=== PATIENT | male | born 1965 | race Caucasian/White ===

== ENCOUNTER 2025-05-03 02:35 | Emergency (ER) | payer MEDICARE, OTHER, SELFPAY ==
[2025-05-03 02:35] VITALS: BP 180/90; PULSE 88; RESP 18; O2SAT 98; BMI 28.7; BMI 31.4
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
[2025-05-03 02:44] LABS: Hematocrit 35.5 % (42.0-52.0); Hemoglobin 11.9 g/dL (14.1-18.0); Immature Granulocytes % 0.4 %; Mean Corpuscular HGB Conc 33.5 g/dL (31.8-35.4); Mean Corpuscular Hemoglobin 28.7 pg (27.0-31.2); Mean Corpuscular Volume 85.7 fl (80-94); Nucleated Red Blood Cells % 0 %; Platelet Count 382 K/mm3 (142-424); Red Blood Count 4.14 M/mm3 (4.60-6.20); Red Cell Distribution Width-SD 41.1 fL; White Blood Count 9.9 K/mm3 (4.8-10.8)
[2025-05-03 02:51] VITALS: BP 195/118; PULSE 82; RESP 20; O2SAT 98
[2025-05-03 02:54] LABS: Albumin Level 4.3 g/dl (3.5-5.0); Chloride 104 mmol/L (98-107); Potassium 4.0 mmoL/L (3.5-5.1); Sodium 136 mmol/L (136-145)
[2025-05-03 02:55] VITALS: BP 189/114; PULSE 81; RESP 18; TEMP 36.6; O2SAT 98
[2025-05-03 02:57] VITALS: BP 189/114; PULSE 82; RESP 18; O2SAT 98
[2025-05-03 02:57] LABS: Alanine Aminotransferase 14 U/L (12-78); Albumin/Globulin Ratio 1.2 (1.1-1.8); Alkaline Phosphatase 112 U/L (38-126); Anion Gap 12.0 mEq/L (5-15); Aspartate Amino Transferase 23 U/L (17-59); Bilirubin,Total 0.3 mg/dl (0.2-1.3); Blood Urea Nitrogen 23 mg/dl (9-20); Carbon Dioxide 24 mmol/L (22.0-30.0); Creatinine Clearance Estimated 106 mL/min (50-200); Creatinine,Serum 1.00 mg/dl (0.66-1.25); Estimated Glomerular Filt Rate 77 ml/min (>60); GFR (African American) 93 ML/MIN (>60); Globulin 3.6 g/dL (1.3-3.2); Total Protein,Serum 7.9 g/dl (6.3-8.2)
[2025-05-03 02:58] LABS: Calcium 9.0 mg/dl (8.4-10.2); Glucose 157 mg/dl (74-100); INR 0.97 (0.9-1.1); Prothrombin Time 10.8 seconds (10.1-12.5)
[2025-05-03 03:00] VITALS: BP 180/109; PULSE 81; RESP 18; O2SAT 98
[2025-05-03 03:01] VITALS: BP 180/109; PULSE 81; RESP 18; O2SAT 98
[2025-05-03 03:09] LABS: Troponin I < 0.01 ng/ml (0.00-0.034)
--- OUTSIDE RECORDS SUMMARY | 2025-05-03 03:43 | XMS_ITS | Clinical Summary ---
Author Organization [facility] Address [address] [place] [address] Phone Care Team Providers Care Tie Maker Name Role Phone Nestor ROBINS, Mauro Dotson Unavailable [phone] [ ] Conditions or Problems Problem Name Problem Code Onset Date Status Entry Date Provider Comment Standard Description Annotate Screening for HIV [id number] (SNOMED CT) 04/16 Active 04/16 Mauro Baez MD Procedure carried out on subject pt has been screened Thoracolumba r region, infected discitis (pyogenic) (document infectious agent) M46.35 (ICD-10-CM ) 04/15 Active 04/15 Rose Glenn Infection of intervertebral disc (pyogenic), thoracolumbar region Osteomyeliti s of vertebra, thoracolumba r region M46.25 (ICD-10-CM ) 04/15 Active 04/15 Rose Glenn Osteomyelitis of vertebra, thoracolumbar region Abscess, epidural G06.1 (ICD-10-CM ) 04/15 Active 04/15 Rose Glenn Intraspinal abscess and granuloma Thrombocytos is, reactive 7900572 (SNOMED CT) 04/15 Active 04/15 Rose Glenn Thrombocytosis DM II with diabetic polyneuropat hy E11.42 (ICD-10-CM ) 01/03 Active 01/03 Rose Glenn Type 2 diabetes mellitus with diabetic polyneuropathy Anemia due to acute blood loss 146355000 (SNOMED CT) 01/03 Resolved 01/03 Rose Glenn Acute posthemorrhagic anemia Hypocalcemia 2860214 (SNOMED CT) 01/03 Resolved 01/03 Rose Glenn Hypocalcemia Hyponatremia 84210897 (SNOMED CT) 01/03 Resolved 01/03 Rose Glenn Hyponatremia Staph Aureus Sepsis 738485819 ([facility]) 01/03 Resolved 01/03 Rose Glenn Sepsis caused by Staphylococcus aureus Spine, subsequent encounter(s) , infection/in flammatory reaction due to internal fixation device T84.63xD (ICD-10-CM ) 01/03 Active 01/03 Rose Glenn Infection and inflammatory reaction due to internal fixation device of spine, subsequent encounter Cellulitis, back 85479086 (SNOMED CT) 01/03 Active 01/03 Rose Glenn Cellulitis of back, except buttock Abscess, back 582118567 (SNOMED CT) 01/03 Active 01/03 Rose Glenn Abscess of back MSSA infection 053259022 (SNOMED CT) 01/03 Active 01/03 Rose Glenn Infection by methicillin sensitive Staphylococcus aureus Staph Aureus Sepsis 226269721 (OMED CT) 01/03 Removed 01/03 Rose Glenn Sepsis caused by Staphylococcus aureus Anemia due to acute blood loss 742917602 (SNOMED CT) 01/03 Removed 01/03 Rsoe Glenn Acute posthemorrhagic anemia Hyponatremia 03521470 (SNOMED CT) 01/03 Removed 01/03 Rose Glenn Hyponatremia Hypocalcemia 9524710 (OMED CT) 01/03 Removed 01/03 Rose Glenn Hypocalcemia Anemia in chronic diseases(doc ument disease) D63.8 (ICD-10-CM ) 01/03 Active 01/03 Rose Glenn Anemia in other chronic diseases classified elsewhere Neutrophilic leukemoid reaction D72.823 (ICD-10-CM ) 01/03 Active 01/03 Rose Glenn Leukemoid reaction Hx of MRSA infection 517307772 (SNOMED CT) 01/03 Active 01/03 Rose Elizabeth H/O: infectious disease DM Type II E11.9 (ICD-10-CM ) 01/03 Inactive 01/03 Rose Elizabeth Type 2 diabetes mellitus without complications Benign Essential Hypertension 13734054 (SNOMED CT) 01/03 Active 01/03 Rose Elizabeth Benign hypertension Medications Medication Instructions Start Date Stop Date Generic Name NDC Provider LISINOPRIL 10 MG TABS Take 1 tablet by mouth twice a day lisinopril [id number] Melanie February ATORVASTATIN CALCIUM 10 MG TABS Take 1 tablet by mouth once a day atorvastatin 20347840650 Melanie February FUROSEMIDE 40 MG TABS Take 1 tablet by mouth every other day furosemide 04809978803 Melanie February METFORMIN HCL 1000 MG TABS Take 1 tablet by mouth twice a day metformin 33794677458 Melanie February INSULIN LISPRO 100 UNIT/ML SOLN Inject 5 unit subcutaneously three times a day insulin lispro 94400071088 Melanie February HYDROCODONE-ACET AMINOPHEN 5-325 MG TABS PRN hydrocodone-estefani taminophen 08872571685 Melanie February cefepime recon soln Cefepime 2G IV [id number]/SJ MS cefepime recon soljesús Ibrahim RN Cubicin RF (daptomycin) recon soln Cubicin 700mg IV [id number]/S JMS daptomycin Elizabeth Ibrahim RN CEPHALEXIN 500 MG TABS Take 1 tablet by mouth four times a day Probiotics recommended while on antibiotics cephalexin 53087050816 Mauro Baez MD POTASSIUM CHLORIDE SCOTTIE ER 20 MEQ CR-TABS Take 1 tablet (20 mEq total) by mouth every other day for 30 days. potassium chloride 13174169819 QIE qieuser PEG 3350 17 GM/SCOOP POWD Take 17 g by mouth daily for 14 days. 05 polyethylene glycol 3350 22602531161 QIE qieuser METFORMIN HCL 1000 MG TABS Take 1 tablet (1,000 mg total) by mouth 2 (two) times daily with breakfast and dinner Look-alike/Soun d-alike medication. metformin 50530260288 QIE qieuser magnesium gluconate 27 mg magnesium (500 mg) tablet Take 1 tablet (500 mg total) by mouth 2 (two) times daily for 30 days. 500 mg QIE qieuser LISINOPRIL 10 MG TABS Take 1 tablet (10 mg total) by mouth 2 (two) times daily. lisinopril 03780373395 QIE qieuser LIDOCAINE PAIN RELIEF MAX ST 4 % PTC Place 1 patch onto the skin daily for 10 days. lidocaine 93713767772 QIE qieuser lactobacillus acidophilus capsule Take 1 capsule (500 Million Cells total) by mouth daily for 30 days. lactobacillus acidophilus capsule QIE qieuser INSULIN LISPRO 100 UNIT/ML SOLN Inject 5 Units subcutaneously 3 (three) times daily before meals. insulin lispro 96386328719 QIE qieuser FUROSEMIDE 40 MG TABS Take 1 tablet (40 mg total) by mouth every other day. furosemide 72583149173 QIE qieuser empagliflozin (JARDIANCE) 10 mg tablet Take 1 tablet (10 mg total) by mouth daily for 30 days. JARDIANCE QIE qieuser ATORVASTATIN CALCIUM 10 MG TABS Take 1 tablet (10 mg total) by mouth daily Resume this medication after you finish IV antibiotic only. atorvastatin 80342273380 QIE qieuser ACETAMINOPHEN 325 MG TABS Take 2 tablet by mouth every six hours as needed acetaminophen 42023843481 Melanie Olivares LISINOPRIL 10 MG TABS Take 1 tablet by mouth every morning lisinopril 32467262229 Melanie Olivares INSULIN LISPRO (1 UNIT DIAL) 100 UNIT/ML SOPN Inject 5 unit subcutaneously three times a day insulin lispro 02912266970 Melanie Olivares METFORMIN HCL 1000 MG TABS Take 1 tablet by mouth twice a day metformin 18879479979 Melanie Olivares cefepime recon soln Cefepime 2G IV [id number]/SJ MS cefepime recon soljesús Ibrahim RN Cubicin RF (daptomycin) recon soln Cubicin 700mg IV [id number]/S JMS daptomycin Elizabeth Ibrahim RN cefepime recon soln Cefepime 2G IV [id number]-FVZZXDRL/SJ HISSU cefepime recon soljesús Ibrahim RN Cubicin RF (daptomycin) recon soln Cubicin 700mg IV f28vip-LSYZQCSE/S J HISSU daptomycin Elizabeth Ibrahim RN cefazolin recon soln Cefazolin 2G IV [id number]/ST MIKY cefazolin recon rosemary Ibrahim RN BACTRIM DS 800-160 MG TABS Take 1 tablet by mouth twice a day Use probiotics while on oral antibiotic sulfamethoxazol e-trimethoprim 75774768866 Mauro Baez MD INSULIN LISPRO (1 UNIT DIAL) 100 UNIT/ML SOPN Inject 5 unit subcutaneously three times a day insulin lispro 85858669644 Ivana Bonilla METFORMIN HCL 1000 MG TABS Take 1 tablet by mouth twice a day metformin 62397725417 Ivana Bonilla LISINOPRIL 10 MG TABS Take 1 tablet by mouth every morning lisinopril 18348017434 Ivana Bonilla ACETAMINOPHEN 325 MG TABS Take 2 tablet by mouth every six hours as needed acetaminophen 34470100059 Eugeniobasilia Chad METFORMIN HCL 1000 MG TABS Take 1 tablet (1,000 mg total) by mouth in the morning and 1 tablet (1,000 mg total) before bedtime. metformin 00737719818 QIE qieuser LISINOPRIL 10 MG TABS Take 1 tablet (10 mg total) by mouth in the morning. lisinopril 20782224865 QIE qieuser INSULIN LISPRO (1 UNIT DIAL) 100 UNIT/ML SOPN Inject 5 Units subcutaneously 3 (three) times daily before meals. insulin lispro 30126413624 QIE qieuser INSULIN GLARGINE-YFGN 100 UNIT/ML SOLN Inject 45 Units subcutaneously daily for 30 days. insulin glargine-yfgn 95174637515 QIE qieuser BISACODYL EC 5 MG TBEC Take 1 tablet (5 mg total) by mouth daily as needed for Constipation for up to 30 days. bisacodyl 54266451850 QIE qieuser ACETAMINOPHEN 325 MG TABS Take 2 tablets (650 mg total) by mouth every 6 (six) hours as needed for up to 360 days. acetaminophen 05681888262 QIE qieuser cefazolin recon soln Cefazolin 2G IV [id number]-VEBLWRWR/ST MIKY cefazolin recon soln Elizabeth Ibrahim RN Medications Administered No information available. Allergies, Adverse Reactions, Alerts Allergy Name Reaction Description Start Date Severity Statu s Provider MELOXICAM Moderate No Longer Active Becka Olivares MELOXICAM Moderate No Longer Active Crystal Mcmillan Results Date Name Value Unit Range Flag Description Office Visit: Office Visit: room 8 ORALTOBACUSE Current Tobacco smoking status SMOK STATUS Former smoker Tobacco smoking status MEDS REVIEW Done Documenta tion of current medications (procedure) Lab Report: CBC WITH AUTO DI FFERENTIAL ZZ-GE-[id number] 0.0 /100 WBC 0.0-0.2 GE use only - for [employer] import when terms are not otherwise specified IMMATUREGRAN 0.02 10*3/MM3 0.00-0.05 Immature granulocytes [#/volume] in Blood BASO# 0.07 10*3/mm3 0.00-0.20 Basophils [#/vol ume] in Blood EOS ABSLT 0.29 10*3/uL 0.00-0.40 Eosinophi ls [#/volume] in Blood MONOSCT AUTO 0.70 10*3/uL 0.10-0.90 Monocy best [#/volume] in Blood by Automated count LYMPHCT AUTO 2.09 10*3/mm3 0.70-3.10 Lymph ocytes [#/volume] in Blood by Automated count ABS NEUTROPH 5.24 10*3/uL 1.70-7.00 Neutro phils [#/volume] in Blood IMM GRANU % 0.2 % 0.0-0.5 Immature granulocytes/100 leukocytes in Blood % EOS AUTO 3.4 % 0.3-6.2 Eosinophil s/100 leukocytes in Blood by Automated count MONOCYTE % 8.3 % 5.0-12.0 Monocytes /100 leukocytes in Blood by Automated count LYMPHOCY BF 24.9 % 19.6-45.3 lymphoc ytes as percent of body fluid leukocytes NEUTROP BF 62.4 % 42.7-76.0 Neutroph ils/100 leukocytes in Body fluid PLATELETS 527 10*3/mm3 140-450 H Platelets [#/volume] in Blood by Automated count RDW_ 13.7 12.3-15.4 RDW, no uni ts MCHC 32.6 G/DL 31.5-35.7 MCHC [Mass/ volume] by Automated count MCH 26.8 pg 26.6-33.0 MCH [Entiti c mass] by Automated count MCV 82.3 fL 79.0-97.0 MCV [Entiti c volume] by Automated count HCT 36.2 % 37.5-51.0 L Hematocrit [Volume Fraction] of Blood by Automated count HGB 11.8 g/dL 13.0-17.7 L Hemoglobin [Mass/volume] in Blood RBC 4.40 10*6/mm3 4.14-5.80 Erythrocyt es [#/volume] in Blood by Automated count WBC 8.41 10*3/mm3 3.40-10.8 0 Leukocytes [#/volume] in Blood by Automated count Lab Report: C-REACTIVE PROTE IN CRP 0.70 mg/dL 0.00-0.50 H C reactive protein [Mass/volume] in Serum or Plasma Lab Report: COMPREHENSIVE ME TABOLIC PANEL ANIONGAP 10.0 mmol/L 5.0-15.0 anion gap, serum BUN/CREAT 13.3 7.0-25.0 Urea nitrogen/Creatinine [Mass Ratio] in Serum or Plasma BILI TOTAL 0.4 mg/dL 0.0-1.2 Bilirubin. total [Mass/volume] in Serum or Plasma ALK PHOS 135 U/L 39-117 H Alkaline jamarcus sphatase [Enzymatic activity/volume] in Blood SGOT (AST) 11 U/L 1-40 Aspartate aminotransferase [Enzymatic activity/volume] in Serum or Plasma SGPT (ALT) 6 U/L 1-41 Alanine aminotransferase [Enzymatic activity/volume] in Serum or Plasma ALBUMIN 3.8 g/dL 3.5-5.2 Albumin [Mass/volume] in Serum or Plasma PROTEIN, TOT 7.6 g/dL 6.0-8.5 Protein [Mass/volume] in Serum or Plasma CALCIUM 8.6 mg/dL 8.6-10.5 Calcium [Moles/volume] in Serum or Plasma CO2 27.0 mmol/L 22.0-29.0 Carbon diox jenny, total [Moles/volume] in Venous blood CHLORIDE 103 mmol/L 98-107 Chloride [Moles/volume] in Serum or Plasma POTASSIUM 3.9 mmol/L 3.5-5.2 Potassium [Moles/volume] in Serum or Plasma SODIUM 140 mmol/L 136-145 Sodium [Moles/volume] in Serum or Plasma CREATININE 0.83 mg/dL 0.76-1.27 Creatini ne [Mass/volume] in Serum or Plasma BUN 11 mg/dL 6-20 Urea nitrogen [Mass/volume] in Serum or Plasma GLUCOSE SER 127 mg/dL 65-99 H Glucose [Mass/volume] in Serum or Plasma Plan of Care Type Date Detail Pending order C- reactive prot ein Pending order CBC with Differe ntial Pending order CMP Pending order Continue oral an tibiotics Pending order CBC with Differe ntial Pending order C- reactive prot ein Pending order CMP Pending order Continue oral an tibiotics Pending order CMP Pending order CBC with Differe ntial Pending order C- reactive prot ein Pending order CMP Pending order CBC with Differe ntial Pending order C- reactive prot ein Pending order PICC Removal Pending order Discontinue IV a ntibiotics Pending order New Oral Antibio tic Pending order CMP Pending order CBC with Differe ntial Pending order C- reactive prot ein Pending order Weekly PICC Line Care Pending order Weekly labs Pending order Weekly labs Pending Order exclud ed from report: Pending order Weekly PICC Line Care Pending Order exclud ed from report: Pending order Weekly PICC Line Care Pending order Weekly labs Pending order Continue IV anti biotics Pending order New Oral Antibio tic Pending order CMP Pending order CBC with Differe ntial Pending order C- reactive prot ein Pending order CMP Pending order CBC with Differe ntial Pending order C- reactive prot ein Pending order Continue IV anti biotics Procedures Code Procedure Name Date Entry Date CPT-Cooral Continue oral antibiotics 20 02/07/11 [id number] CBC with Differential 2023 CPT-61821 C- reactive protein CPT-40800 CMP CPT-Cooral Continue oral antibiotics 20 01/06/07 CPT-PICREM PICC Removal CPT-DC Discontinue IV antibiotics 2 CPT-karlie New Oral Antibiotic CPT-90176 CMP [id number] CBC with Differential 2023 CPT-29432 C- reactive protein CPT: weekly Weekly labs CPT-wpc Weekly PICC Line Care 04/15 CPT-wpc Weekly PICC Line Care 04/15 CPT: weekly Weekly labs CPT-ca Continue IV antibiotics 2023 CPT-karlie New Oral Antibiotic CPT-08265 CMP [id number] CBC with Differential 2023 CPT-84407 C- reactive protein CPT-82651 CMP [id number] CBC with Differential 2023 CPT-57866 C- reactive protein CPT-ca Continue IV antibiotics 2023 Vital Signs Date Name Value Unit Description BMI (Body Mass Index) 32.07 kg/m2 Bod y Mass Index (Ratio) Body Temperature 98.9 [degF] temperat ure E&M BP Diastolic 86 mm[Hg] blood pressu re, diastolic BP Systolic 152 mm[Hg] blood pressur e, systolic Heart Rate 88 /min pulse rate Height 71 [in_us] height E&M Respiratory Rate 16 /min respirat ory rate E&M Weight Measured 230 [lb_av] weight E& M Weight Measured 230 [lb_av] weight E& M Immunizations No information available. Advance Directives No information available.
== END 2025-05-03 03:33 | disposition other institution (70) ==
LOC: ER 03:42
PROVIDERS: Emergency Provider Emergency Medicine
DX: S29.9XXA Unspecified injury of thorax, initial encounter (principal); S69.91XA Unspecified injury of right wrist, hand and finger(s), initial encounter; S81.812A Laceration without foreign body, left lower leg, initial encounter; R10.817 Generalized abdominal tenderness; F10.929 Alcohol use, unspecified with intoxication, unspecified; V24.49XA Other motorcycle driver injured in collision with heavy transport vehicle or bus in traffic accident, initial encounter; Y92.410 Unspecified street and highway as the place of occurrence of the external cause; Y90.6 Blood alcohol level of 120-199 mg/100 ml
CPT/HCPCS: 71045; 72170; 80053; 80320; 84484; 85025; 85610; 96365; 99291; G0390; J0690